=== PATIENT | female | born 1980 | race Caucasian/White ===

== ENCOUNTER 2020-06-15 10:18 | Outpatient (REF) | payer BC, SELFPAY ==
--- NOTE | 2020-06-15 08:40 | PAPFT_PTH ---
PATIENT: LAMONT MARKS LOC: [facility] U#:[id number] AGE/SX: 40/F ROOM: RE06/15/[address]: Rubi Shaikh NP : 1980 BED: DIS: 06/15/2020 SPEC #: [id number] RECD: 06/15/20 12:49 STATUS: [place] REQ #: [id number] ZORA: 06/15/20 08:[address]: Rubi Shaikh NP DEPT: [facility] Cytology RECD BY: Anne Garcia ENTERED: 06/15/20 12:49 SP TYPE: PAPFT OTHR DR: Julienne Bryant Tissues: 1 - CX/ENDOCX FOR PAP SMEARS Procedures: PAP THIN PREP/[facility] Screening HPV DNA PROBE Comments: [id number]
== END 2020-06-15 10:38 ==
LOC: LBN 10:18
PROVIDERS: PCP Family Medicine; Visit Provider Nurse Practitioner Women's Health
DX: Z12.4 Encounter for screening for malignant neoplasm of cervix (principal); Z11.51 Encounter for screening for human papillomavirus (HPV)
CPT/HCPCS: 88142; 87624

== ENCOUNTER 2020-06-21 00:48 | Outpatient (CLI) | payer BC, SELFPAY ==
--- NOTE | 2020-06-21 06:45 | DI.US_ITS ---
EXAM: US PELVIS TRANSVAGINAL CLINICAL HISTORY: Menorrhagia,n92.0 TECHNIQUE: Transabdominal and transvaginal imaging was performed using standard protocol. COMPARISON: No exams were available for comparison FINDINGS: KIDNEYS: Kidneys are symmetric in size. No evidence of renal calculi. No evidence of hydronephrosis. No renal mass or cyst identified. UTERUS: Anteverted. 9.7 x 4.7 x 5.8 cm. Endometrium: 13 millimeters. Homogeneous. Myometrium: 2.4 centimeter anterior right-sided myometrial fibroid. Cervix: Unremarkable. OVARIES: Right: Cyst or mass: None. Left: Cyst or mass: 2.4 centimeter cyst with debris. DOPPLER: Color: Symmetric and uniform flow to both ovaries. No hyperemia. Duplex: Normal ovarian arterial waveforms visualized. CUL-DE-SAC: Free fluid: None. IMPRESSION: 1. Small uterine fibroid.. 2. 2.4 centimeter complex left ovarian cyst. DATA REPOSITORY:
== END 2020-06-21 01:08 ==
PROVIDERS: PCP Family Medicine; Visit Provider Nurse Practitioner Women's Health
DX: D25.9 Leiomyoma of uterus, unspecified (principal); N92.0 Excessive and frequent menstruation with regular cycle; N83.292 Other ovarian cyst, left side
CPT/HCPCS: 76830; 76856

== ENCOUNTER 2020-09-08 01:07 | Outpatient (CLI) | payer OTHER, SELFPAY ==
--- NOTE | 2020-09-08 08:00 | DI.MAMMO_ITS ---
EXAM: MG MAMMO SCREENING CLINICAL HISTORY: screening. Baseline study TECHNIQUE: Bilateral full field digital CC and MLO mammographic images were obtained with 3D tomosyn thesis and utilizing computer aided detection (CAD). COMPARISON: None. This is a baseline mammogram on this 40-year-old patient. FINDINGS: There are no CAD designations. There are no spiculated masses nor malignant appearing microcalcification groups. There is no signif icant architectural distortion nor skin thickening-retraction. IMPRESSION: No radiographic evidence of malignancy. BI-RADS Category 1 - Negative Breast Density - Category B - Scattered areas of fibroglandular density Breast density Category C or D implies that the patient has dense breast tissue. Dense breast tissue can make it harder to find cancer on a mammogram. Dense breast tissue is also associated with an incr eased risk of breast cancer. This information about the result of the mammogram report was provided to the patient to raise their awareness. Use this report when you speak with the patient about their risks for breast cancer, which includes their family history. At that time, you may recommend additional screening tests (Ultrasoun d or MRI) as these tests may add significant information. A negative radiographic report should not delay biopsy if a dominant or clinically suspicious mass is present. Up to ten percent of cancers are not identified on mammography. A negative report may reinforce clinical impression. Adenosis and dense breasts may obscure an underlying neoplasm. False positive reports average 6 to 10%. Patient will receive a letter notifying them of these results.
== END 2020-09-08 01:27 ==
PROVIDERS: PCP Family Medicine; Visit Provider Nurse Practitioner Women's Health
DX: Z12.31 Encounter for screening mammogram for malignant neoplasm of breast (principal)
CPT/HCPCS: 77063; 77067

== ENCOUNTER 2020-09-19 01:08 | Outpatient (CLI) | payer OTHER, SELFPAY ==
--- NOTE | 2020-09-19 08:00 | DI.US_ITS ---
EXAM: US PELVIS TRANSVAGINAL CLINICAL HISTORY: F/u on Left ovarian cyst,83.202. TECHNIQUE: Transabdominal and transvaginal pelvic ultrasound was performed using standard protocol. COMPARISON: US US PELVIS TRANSVAGINAL from 06/21/2020 FINDINGS: KIDNEYS: Kidneys are symmetric in size. No evidence of renal calculi. No evidence of hydronephrosis. No renal mass or cyst identified. UTERUS: Position: Anteverted. Size: 9.8 long by 4 AP by 5 transverse cm Endometrium: 0.6 cm. Normal for patient's menstrual status. Since the prior examination, there has be en interval placement of an IUD which is in good position. Myometrium: Stable uterine fibroid. Cervix: Unremarkable. OVARIES: Right: 2.9 x 3.2 x 1.4 cm Cyst or mass: None. Left: 4.3 x 3.5 x 1.5 cm Cyst or mass: The previously noted complex cyst is no longer visualized. Follicular simple cysts are seen in the left ovary. The largest measures 1.6 cm. DOPPLER: Color: Symmetric and uniform flow to both ovaries. No hyperemia. Duplex: Normal ovarian arterial waveforms visualized. CUL-DE-SAC: Free fluid: None. Other: None. IMPRESSION: 1. Normal sonographic appearance of the kidneys. 2. Normal-appearing uterus with endometrial stripe within normal limits. Interval placement of an IU D which is in good position. 3. Unremarkable bilateral ovaries. Resolution of the complex left ovarian cyst. DATA REPOSITORY:
== END 2020-09-19 01:28 ==
PROVIDERS: PCP Family Medicine; Visit Provider Nurse Practitioner Family
DX: Z87.42 Personal history of other diseases of the female genital tract (principal); Z97.5 Presence of (intrauterine) contraceptive device
CPT/HCPCS: 76830; 76856